=== PATIENT | male | born 1955 | race Caucasian/White ===

== ENCOUNTER 2018-03-04 05:09 | Inpatient (IN) ==
--- NOTE | 2018-02-27 17:40 | MH ---
cc: Jamie Farrell MD DATE OF ADMISSION: 03/04/2018 ADMITTING DIAGNOSIS: Osteoarthritis of the right knee. HISTORY OF PRESENT ILLNESS: The patient is a 62-year-old white male who has had a longstanding history of bilateral knee pain extending back for at least 6 years. The patient had noted the gradual onset of discomfort involving both knees unrelated to injury or unusual activity. He had completed previous orthopedic evaluation and within the past several years, had undergone arthroscopic surgery of both knees with limited improvement of his discomfort being noted. With the passage of time, he became progressively more symptomatic with pain that began to interfere with all weightbearing activities. 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 He was initially evaluated by the undersigned physician in May 2017 and at that time, his x-ray studies revealed obvious degenerative changes throughout the medial compartment, associated with a varus deformity of at least 10 degrees magnitude and secondary involvement of the patellofemoral articulation. Findings and treatment options were reviewed. The pros and cons of continuing with conservative management versus operative intervention that would involve total knee arthroplasty were outlined in detail. Emphasis was made regarding the fact that the decision to proceed with surgery would be left entirely to the patient's discretion. At that time, the patient elected to continue with conservative management. He was subsequently fitted with a medial offloading brace and prescribed diclofenac 75 mg to be taken twice daily. He was thereafter followed on an outpatient basis unfortunately his symptoms persisted in spite of ongoing treatment, which did include intraarticular steroid injection. He became progressively more symptomatic with pain and returned to the office in the more recent past expressing his desire to proceed with a more definitive course of treatment. The involvement of total knee arthroplasty was again outlined in detail and at that time, the patient felt that his symptoms and limitations had progressed to a point where he was ready to proceed accordingly. In compliance with his wishes, he was scheduled for admission at this time in order that the above be accomplished. PAST MEDICAL HISTORY, HOSPITALIZATIONS AND SURGERIES: In addition to the arthroscopic procedures as described included an arthroscopic rotator cuff repair of the right shoulder, tonsillectomy and colonoscopy. The patient denies active medical illnesses. MEDICATIONS: His prescribed medications have included diclofenac. ALLERGIES: HE DENIES ANY KNOWN DRUG ALLERGIES. REVIEW OF SYSTEMS: He wears glasses. Denies headache, seizure, or syncope. No sinus congestion or epistaxis. Auditory acuity intact. No tenderness. No bleeding gums or dysphagia. Denies cough, shortness of breath, upper respiratory infection, pneumonia, or tuberculosis. No angina or heart disease. His appetite is good. Bowel movements are regular. No hepatitis, gallbladder disease, ulcers or hemorrhoids. No urinary tract infection, no kidney stones, no prostate disease. No history of fractures. No psychiatric illness. His remaining review of systems is unremarkable and noncontributory. FAMILY HISTORY: The patient has been 17 years. This being a third marriage. His is 60 years of age and described as being in good health. He has 1 daughter who as indicated to be in good health. Family history is otherwise positive for hypertension, heart disease and cervical cancer. SOCIAL HISTORY: The patient completed a high school education. He is employed as a producer director at [employer]. He admits to a [id number] use of tobacco. Ethanol consumption in the form of 3-6 beers daily. PHYSICAL EXAMINATION: VITAL SIGNS: Height 5 feet 6 inches, weight 162 pounds. GENERAL: An alert, oriented, and responsive 62-year-old white male who sits quietly upon the examination table with no obvious distress. HEAD, EARS, EYES, NOSE AND THROAT: Pupils are equally round and reactive to light. Extraocular movements full. Sclerae are clear. External nares clear. External auditory canals clear. Edentulous in the maxillary distribution edentulous in the mandibular distribution. Mucous membranes pink and moist. Pharynx is clear. NECK: Supple. Active range of motion with no appreciable pain. Carotid pulse is palpable bilaterally. Trachea midline. Thyroid without thyroid enlargement. LUNGS: Clear to auscultation and percussion. No CVA tenderness. No discomfort throughout the dorsolumbar spine. HEART: Regular rate and rhythm. No murmur or gallop. ABDOMEN: Soft, nontender, bowel sounds present. RECTAL: Per primary care physician. EXTREMITIES: Right knee, no significant swelling or effusion. There is an obvious varus deformity with medial joint line tenderness. Apprehension and compression sign negative. Slight limitation of mobility at the extreme of flexion with pain associated. No significant crepitation or sensation of instability. Yani test and drawer sign negative. Pivot shift and Regan sign positive for medial compartment pain. Straight-leg raising unremarkable at 80 degrees. Satisfactory mobility of the right hip with no associated pain. Distal sensory grossly intact. Mild antalgic gait. NEUROLOGIC: Cranial nerves 2-12 grossly intact. IMPRESSION: Osteoarthritis of the right knee. PLAN: Right total knee arthroplasty: The nature of the planned surgical procedure, the potential complications and risks associated, the expectations of surgery and the consent form were thoroughly reviewed with the patient in the presence of his prior to admission to the hospital. Gianfranco has indicated his full understanding regarding all of the above and given consent to proceed with treatment as outlined. Medical evaluation and clearance for surgery completed by his primary care physician, Dr. Roberth Yoo. Jamie Farrell MD [facility]/ , 05:15 PM , 05:27 PM
[2018-03-04] MEDS ORDERED: Chlorhexidine Gluconate 2% 1 Pack (2 Cloths) TOPICAL ONE (05:37)
[2018-03-04] MEDS ORDERED: Metoprolol Tartrate 25 MG Tablet PO ONE (05:37)
[2018-03-04] MEDS ORDERED: Sodium Chlor 0.9% Inj 500 ML IV.SIG SCH (06:00)
[2018-03-04] MEDS ORDERED: ceFAZolin 2 GM Premix Inj 2 GM/50 ML PIGGYBACK IV.SIG SCH (06:00)
[2018-03-04] MEDS ORDERED: Bupivacaine Liposomal PF 1.3% Inj 20 ML Vial ONE (06:05)
[2018-03-04] MEDS ORDERED: Tranexamic Acid Inj 1,000 MG in Sodium Chlor 0.9% Inj 100 ML IV.SIG SCH ×2 (07:00→10:00)
[2018-03-04] MEDS ORDERED: Sodium Chlor 0.9% Inj 50 ML, Ropivacaine 0.5% PF Inj 24.63 ML, Ketorolac Inj 30 MG, EPI... P-ARTICULR SCH ×5 (07:00)
[2018-03-04] MEDS ORDERED: Lidocaine PF 1% Inj 5 ML Syringe INFILTRATN ONE (07:29)
[2018-03-04] MEDS ORDERED: Post-op Orders (for Pharmacy) OTHER STA (09:11)
[2018-03-04] MEDS ORDERED: fentaNYL Citrate Inj 100 MCG/2 ML Ampul ONE (09:28)
[2018-03-04] MEDS ORDERED: *morphine SULFATE 4 MG/ML PERIprocedure ONLY ONE (09:34)
[2018-03-04] MEDS ORDERED: Bisacodyl 10 MG Supp RECTAL PRN (09:39)
[2018-03-04] MEDS ORDERED: Aluminum/Magnesium/Simethacone Susp 30 ML UDC PO PRN (09:39)
[2018-03-04] MEDS ORDERED: Acetaminophen 325 MG Tablet PO PRN (09:39)
[2018-03-04] MEDS ORDERED: Tranexamic Acid Inj 1,000 MG in Sodium Chlor 0.9% Inj 100 ML IV.SIG ONE (09:39)
[2018-03-04] MEDS ORDERED: Zolpidem Tartrate 5 MG Tablet PO PRN (09:39)
[2018-03-04] MEDS ORDERED: Naloxone Inj 0.4 MG/ML Vial IV.PUSH PRN (09:39)
--- NOTE | 2018-03-04 09:54 | MP ---
cc: Jamie Farrell MD DATE OF OPERATION: 03/04/2018 PREOPERATIVE DIAGNOSIS: Osteoarthritis of the right knee. POSTOPERATIVE DIAGNOSIS: Osteoarthritis of the right knee. PROCEDURE PERFORMED: Right total knee arthroplasty. SURGEON: Jamie Farrell MD ANESTHESIA: General endotracheal. INDICATIONS: The patient is a 62-year-old white male with a longstanding history of bilateral knee pain dating back at least 6 years when the patient became symptomatic unrelated to injury or unusual activity. He has completed previous orthopedic evaluation, which had included arthroscopic surgery of both knees with limited improvement of his discomfort being noted. With the passage of time, he became progressively more symptomatic with pain. It began to interfere with all weightbearing activities. 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 He was initially evaluated by the undersigned physician in May of this past year and at that time, his x-ray studies revealed obvious degenerative changes throughout the medial compartment, associated with a varus deformity of at least 10 degrees magnitude and secondary involvement of the patellofemoral articulation. Findings and treatment options were reviewed at that time. The pros and cons of continuing with conservative management versus operative intervention that would involve total knee arthroplasty were outlined in detail. Emphasis was made regarding the fact that the decision to proceed with surgery will be left entirely to the patient's discretion. At that time, the patient elected to continue with conservative management. He was thereafter fitted with a medial offloading brace and prescribed diclofenac 75 mg twice daily. He was thereafter followed on an outpatient basis. Unfortunately his symptoms persisted in spite of ongoing treatment and subsequent intraarticular steroid injection. He became progressively more symptomatic with pain, returning to the office in the more recent past expressing his desire to proceed with a more definitive course of treatment. Once again, the involvement of total knee arthroplasty was outlined and at that time, the patient felt that he was ready to proceed accordingly and in compliance with his wishes, he was scheduled for admission at this time in order that the above be accomplished. FORMAT: Following the induction of satisfactory general anesthesia by endotracheal intubation as completed per the Department of Anesthesia, a tourniquet was established around the proximal portion of the right lower extremity. The extremity proper was isolated with a U-drape, thereafter being prepped with Betadine solution and draped into a sterile field in the routine manner. Prior to initiation of the actual procedure, the standard timeout protocol was completed. All parameters were appropriately addressed and confirmed by operating room personnel. The extremity was elevated for approximately 1 minute and the tourniquet, thus inflated to 250 mmHg pressure. A sharp skin incision was initiated midline over the anterior aspect of the knee and developed through underlying subcutaneous tissue with hemostasis maintained by electrocautery. By deepening dissection, the anterior capsule was exposed, a medial capsulotomy completed and the patella subluxed in a lateral orientation. Examination of the joint space, revealed severe degenerative changes throughout the medial compartment, extending into the patellofemoral articulation. There was complete erosion of articular cartilage and subchondral bone exposed. The articular surface of the patella was resected. The 3-hole guide was utilized for establishing post-holes. Medial and lateral meniscus structures were sharply excised as was the anterior cruciate ligament. A centering hole was placed in the distal aspect of the femur, allowing positioning of the intramedullary guides. The distal femoral cutting jig was attached and the distal femur resected. AP measurement noted 70 mm sizing to be appropriate. The matching cutting block was positioned; anterior, posterior and chamfer cuts were completed. The tibial plateau was thereafter subluxed in an anterior orientation allowing positioning of the extramedullary guide. The tibial plateau was resected and measured with 79 mm sizing determined to be appropriate. A trial reduction followed utilizing a 70 mm anatomic femoral component, a 79 mm tibial base with both 10 mm and 12 mm bearing inserts trialed. The 12 mm thickness was determined to be the more favorable fit. The knee was readily brought to full extension. There was no laxity to varus and valgus stress at both 0 and 90 degrees flexed posture. Orientation was confirmed as appropriate with measurement of the pelvic guide through the mechanical access of the knee. A trial reduction followed utilizing a 34 mm standard 3 post-patellar button. Again, good tracking noted with no tendency towards subluxation. All trial components were thereafter removed. The remaining portion of the proximal tibia was prepared for insertion of the permanent component. The joint space was thoroughly lavaged with pulsating antibiotic solution, hemostasis maintained by electrocautery. An autogenous bone plug was inserted into the distal femoral guide hole and thereafter a preparation of Biomet bone cement, was utilized in inserting knee components in a sequential fashion, which included a 79 mm fixed cruciate tibial plate to which a 12 mm Vanguard tibial bearing insert was secured with locking dawn. The 70 mm Vanguard femoral component was firmly seated onto the distal femur, excess cement being removed. The knee was brought to full extension and thereafter, the 34-mm standard 3 post-patellar button was attached and maintained in place with patellar clamp while cement hardening was completed. Final range of motion assessment noted good tracking and stability throughout the knee. Irrigation repeated with hemostasis maintained. Autovac drain tubes were inserted through superior stab wounds. The capsule was repaired with 0-Vicryl suture. Remaining portion of the wound was closed in layers in the routine manner, skin margins being reapproximated with a running subcuticular 3-0 Vicryl suture over which Steri-Strips were applied. Xeroform gauze and a bulky dry sterile dressing placed. Tourniquet deflated after 49 minutes of tourniquet time. The extremity being supported in a canvas knee splint. Anesthesia was discontinued. The patient was thus transferred to a hospital bed and returned to the recovery room in satisfactory condition, having tolerated his operative procedure well. Estimated blood loss was approximately 100 mL as determined per anesthesia. All implants of the [employer] mailing specialist. MD LORAINE Dutton/stephen , 09:26 AM , 09:38 AM
[2018-03-04] MEDS ORDERED: Morphine Inj 30 MG/30 ML PCA.VIAL PCA ONE (09:56)
[2018-03-04] MEDS: Morphine Inj 30 MG/30 ML PCA.VIAL PCA PRN (10:04)
--- NOTE | 2018-03-04 10:32 | XR ---
EXAM DATE: 03/04/2018 10:29 AM EDT AGE/SEX: 62 years / Male INDICATIONS: Post-op right total knee. CLINICAL DATA: This is the patient's initial encounter. Patient reports that signs and symptoms have been present for 1 day and indicates a pain score of Nonresponsive. MEDICAL/SURGICAL HISTORY: None. None. [place] [facility] [place] 4[place]13/2018. . FINDINGS: Total knee arthroplasty. Subcutaneous air, surgical drain identified. Tibial and femoral components a ppear well seated. CONCLUSION: Postop right total knee arthroplasty. Electronically signed by: Marquez Da Silva MD 03/04/2018 10:30 AM EDT
--- NOTE | 2018-03-04 14:55 | P.CON ---
History of Present Illness Service: medicine Consult date: 03/04/18 Requesting Physician: Jamie Farrell Reason for Consult: Postop medical management for total knee arthroplasty Primary Care Provider: Roberth Yoo DO Family Provider: Roberth Yoo DO Chief Complaint: none History of Present Illness: This is a 62-year-old male with osteoarthritis in multiple joints who presented with elective surgery with right total knee arthroplasty that was done today by Dr. Jamie Farrell. [facility] consulted for postop medical management. Patient seen postop in his room and he stated he has no complaints. Patient stated that he has no medical conditions. He does not take any medication but multivitamins. Patient also stated that he takes baby aspirin on his own for preventive measures. He stated that he stopped that almost a week ago due to the surgery. Patient has no complaints. Patient nurses at the bedside during the interview. Review of Systems Constitutional: Denies anorexia, Denies body ache(s), Denies chills, Denies daytime sleepiness, Denies excessive sweating, Denies fatigue, Denies fever(s), Denies headache(s), Denies increased appetite, Denies lack of energy, Denies malaise, Denies night sweats, Denies weakness, Denies weight gain, Denies weight loss, Denies other Eyes: Denies blind spots, Denies blurry vision, Denies bulging eyes, Denies change in vision, Denies double vision, Denies discharge, Denies dry eyes, Denies floaters, Denies irritation, Denies itchy eyes, Denies loss of vision, Denies pain, Denies requires corrective lenses, Denies sensitivity to light, Denies other Ears, Nose, Mouth, and Throat: Denies abnormal hearing, Denies bleeding gums, Denies bad breath, Denies change in voice, Denies dental pain, Denies difficulty swallowing, Denies dizziness, Denies dry mouth, Denies ear discharge , Denies ear pain, Denies facial pain, Denies headache(s), Denies hearing loss, Denies hoarseness, Denies lip swelling, Denies nosebleed, Denies mouth lesions, Denies mouth pain, Denies nasal congestion, Denies nasal discharge, Denies nasal obstruction, Denies nasal trauma, Denies neck lump, Denies neck pain, Denies nose pain, Denies pain with swallowing, Denies poor balance, Denies post nasal drip, Denies ringing in the ears, Denies sinus pain, Denies sinus pressure , Denies sore throat, Denies throat swelling, Denies tongue swelling, Denies other Cardiovascular: Denies chest pain, Denies chest pain at rest, Denies chest pain with activity, Denies excessive sweating, Denies fainting, Denies fast heart rate, Denies foot swelling, Denies generalized swelling, Denies irregular heart rhythm, Denies leg pain with activity, Denies leg sores, Denies leg swelling, Denies lightheadedness, Denies radiating jaw, neck or arm pain, Denies rapid, pounding, or irregular heartbeat, Denies shortness of breath, Denies shortness of breath with activity, Denies shortness of breath when lying down, Denies shortness of breath causing sudden awakening, Denies slow heart rate, Denies other Respiratory: Denies change in phlegm color, Denies chest congestion, Denies cough, Denies coughing up blood, Denies excessive phlegm production, Denies pain on inspiration, Denies pain with cough, Denies shortness of breath, Denies shortness of breath with activity, Denies snoring, Denies stridor, Denies wheezing, Denies other Gastrointestinal: Denies abdominal pain, Denies belching, Denies black, tarry stools, Denies bloating, Denies bright, red blood in stools, Denies change in bowel habits, Denies constant urge to pass stool, Denies change in stools, Denies coffee ground vomit, Denies constipation, Denies cramping, Denies difficulty swallowing, Denies excessive passing of gas, Denies feeling full early, Denies heartburn, Denies incontinent of stools, Denies loose stools, Denies nausea, Denies pain with swallowing, Denies vomiting, Denies vomiting blood, Denies other Genitourinary: Denies blood in semen, Denies blood in urine, Denies decreased urination, Denies difficulty urinating, Denies difficulty with ejaculations, Denies erectile dysfunction, Denies genital lesions, Denies genital pain, Denies painful urination, Denies side pain, Denies frequent nighttime urination , Denies painful ejaculations, Denies penile discharge, Denies scrotal swelling , Denies testicle lump, Denies testicle pain, Denies urinary frequency, Denies urinary hesitancy, Denies urinary incontinence, Denies urinary urgency, Denies other Musculoskeletal: Reports joint pain, Reports other (Right knee discomfort), Denies abnormal walking, Denies back pain, Denies body aches, Denies decreased muscle mass, Denies deformity, Denies joint swelling, Denies limited joint movement, Denies loss of height, Denies muscle cramps, Denies muscle weakness, Denies neck pain, Denies numbness, Denies radiating pain into limb, Denies stiffness, Denies tingling Skin/Breast: Denies acne, Denies bleeding lesions, Denies boil, Denies breast swelling, Denies breast skin changes, Denies breast pain, Denies breast lump, Denies change in breast shape, Denies change in hair, Denies change in skin color, Denies changing lesions, Denies dry skin, Denies excessive hair growth, Denies hair loss, Denies itching, Denies lesions, Denies nail changes, Denies new lesions, Denies nipple discharge, Denies non-healing lesions, Denies redness , Denies sensitivity to light, Denies rash, Denies skin pain, Denies skin ulcer , Denies sores, Denies stretch chambers, Denies unusual bruising, Denies wounds, Denies yellowing of the skin, Denies other Neurologic: Denies abnormal hearing, Denies abnormal movements, Denies abnormal speech, Denies abnormal walking, Denies behavioral changes, Denies burning sensations, Denies confusion, Denies dizziness, Denies fainting, Denies frequent falls, Denies headache(s), Denies lack of coordination, Denies localized weakness, Denies loss of vision, Denies memory loss, Denies numbness, Denies other visual disturbances, Denies radiating pain, Denies restless legs, Denies convulsions, Denies seizure-like activity, Denies sensory deficit, Denies tingling, Denies tingling/numbness/burning sensations, Denies tremor(s), Denies unsteadiness, Denies weakness, Denies other Psychiatric: Denies abnormal sleep pattern, Denies anxiety, Denies behavioral changes, Denies change in appetite, Denies change in sex drive, Denies confusion , Denies depression, Denies difficulty concentrating, Denies hearing things others do not hear, Denies hopelessness, Denies irritability, Denies lack of enjoyment, Denies memory loss, Denies mood swings, Denies panic attacks, Denies paranoia, Denies seeing things others do not see, Denies sensing things others do not sense, Denies tactile hallucinations, Denies thoughts of hurting/killing others, Denies thoughts of hurting/killing yourself, Denies other Endocrine: Denies cold intolerance, Denies excessive sweating, Denies flushing, Denies heat intolerance, Denies increased hunger, Denies increased thirst, Denies increased urination, Denies rapid, pounding, or irregular heartbeat, Denies other Hematologic/Lymphatic: Denies easy bleeding, Denies easy bruising, Denies enlarged lymph nodes, Denies other Allergic/Immunologic: Denies GI upset with certain foods, Denies hives, Denies itchy eyes, Denies lip swelling, Denies seasonal runny nose, Denies throat swelling, Denies tongue swelling, Denies wheezing, Denies other PMFSH - History History Provided By: Patient - Medical History Medical History: Medical History (Last Reviewed 03/04/18 @ 08:16 by Janes Pete) Arthritis Wears dentures - Surgical History Surgical History: Surgical History (Last Reviewed 03/04/18 @ 08:16 by Janes Pete) Hx of arthroscopic knee surgery Hx of rotator cuff surgery - Family History Family History: Family History (Last Updated 03/04/18 @ 15:00 by Zenia Ohara MD) Other Family history reviewed with no changes - Tobacco History Second Hand Smoke Exposure: Yes Tobacco Use In Past 30 Days: Yes Smoking Status: Current every day smoker Tobacco Type: Cigarettes - Alcohol History How Often Do You Have a Drink Containing Alcohol: 4 or more times a week - Substance Use History Substance History: No History of Abuse Medications and Allergies Active Medications: Active Medications Acetaminophen (Tylenol) 650 mg PO Q6H PRN PRN Reason: FEVER > 102 F Hydrocodone Bitart/Acetaminophen (Sen[place] 5/325) 1 tab PO Q4H PRN PRN Reason: PAIN LESS THAN 5 ON SCALE Hydrocodone Bitart/Acetaminophen ([place] 5/325) 2 tab PO Q6H PRN PRN Reason: PAIN SCALE 5 TO 10 Al Hydrox/Mg Hydrox/Simethicone (Mag-Al Plus Susp Liq) 30 ml PO Q6H PRN PRN Reason: INDIGESTION Al Hydroxide/Mg Hydroxide (Milk Of Magnesia Liq) 30 ml PO BID PRN PRN Reason: Mild Constipation Aspirin (Aspirin) 325 mg PO BID [facility] Bisacodyl (Dulcolax Supp) 10 mg RECTAL DAILY PRN PRN Reason: SEVERE CONSITIPATION Cefazolin Sodium/Dextrose (Ancef 2 Gm Premix Inj) 2 gm in 50 mls @ 100 mls/hr IV.SIG [employer]IPMENT TENDER [facility] Stop: 03/08/18 05:59 Cefazolin Sodium 1,000 mg/ (Sodium Chloride) 100 mls @ 200 mls/hr IV.SIG Q6H [facility] Stop: 03/05/18 01:29 Lactated Ringer's (Lr 1000 Ml Inj) 1,000 mls @ 80 mls/hr IV.CONT .[id number] [facility] Last Infusion: 03/04/18 10:30 Dose: 80 mls/hr Morphine Sulfate (Morphine Inj) 30 mg in 30 mls @ 0 mls/hr INSIDE CHANNEL ACCOUNT MANAGER UNSCH PRN PRN Reason: per INSIDE CHANNEL ACCOUNT MANAGER parameters Stop: 03/05/18 09:38 Last Admin: 03/04/18 10:04 Dose: 0 mls/hr Lactulose (Lactulose Liq) 30 ml PO DAILY PRN PRN Reason: SEVERE CONSITIPATION Miscellaneous Information (Misc Nursing Information) 0 each OTHER UNSCH PRN PRN Reason: SEE DOSE INSTRUCTIONS Miscellaneous Information (Mis Nursing Information) 0 each OTHER UNSCH PRN PRN Reason: SEE LABEL COMMENTS Stop: 03/05/18 09:24 Naloxone HCl (Narcan Inj) 0.4 mg IV.PUSH UNSCH PRN PRN Reason: Resp rate < 10 Nicotine (Habitrol 14 Mg Patch.24 Hr) 1 patch T-DERMAL DAILY [facility] Ondansetron HCl (Zofran Inj) 4 mg IV.PUSH Q6H PRN PRN Reason: NAUSEA OR VOMITING Patch Removal (Remove Old Patch) 1 each T-DERMAL DAILY [facility] Povidone Iodine (Betadine 7.5% Scrub) 1 applicatio TOPICAL ONCE [facility] Stop: 03/08/18 05:59 Last Admin: 03/04/18 05:30 Dose: 1 applicatio Senna/Docusate Sodium (Maru-Colace) 1 tab PO BID [facility] Sennosides (Senokot) 17.2 mg PO BID PRN PRN Reason: Moderate Constipation Sodium Chloride (Ns Flush) 2 ml IV.FLUSH BID [facility] Sodium Chloride (Ns Flush) 2 ml IV.FLUSH UNSCH PRN PRN Reason: FLUSH AFTER USING IV ACCESS Zolpidem Tartrate (Ambien) 5 mg PO HS PRN PRN Reason: INSOMNIA Allergies Allergy/AdvReac Type Severity Reaction Status Date / Time No Known Allergies Allergy Verified 03/04/18 06:26 Home Medications Medication Instructions Recorded Confirmed Type ibuprofen 800 mg PO TID 02/19/18 03/04/18 History diclofenac sodium mg PO BID 03/04/18 History Physical Exam Vital signs: Vital Signs 03/04/18 05:53 03/04/18 05:57 03/04/18 06:35 Temperature 98.6 F Pulse Rate 71 74 Respiratory Rate 20 Blood Pressure 153/89 H Pulse Oximetry 96 03/04/18 09:23 03/04/18 09:30 03/04/18 09:45 Temperature 98.1 F Pulse Rate 76 70 66 Respiratory Rate 16 16 14 Blood Pressure 129/75 129/69 116/68 Pulse Oximetry 97 95 94 L 03/04/18 10:00 03/04/18 10:15 03/04/18 10:30 Temperature 98.1 F Pulse Rate 63 61 61 Respiratory Rate 12 12 12 Blood Pressure 114/68 112/65 127/70 Pulse Oximetry 96 97 97 Intake & Output 03/03/18 03/04/18 03/04/18 18:59 06:59 18:59 Intake Total 1220 / 1220 Output Total 140 / 140 Balance 1080 / 1080 Weight 73.2 kg 73.2 kg Intake: IV 1220 / 1220 LR 1000 mL Inj 1,000 ML @ 80 10 / 10 mls/hr IV.CONT .[id number] [facility] Rx# :[id number] LR 1000 mL Inj 1,000 ML @ 30 1000 / 1000 mls/hr IV.SIG .Q24H [facility] Rx#: [id number] Cyklokapron Inj 1,000 MG In NS 210 / 210 Inj 100 ML @ 200 mls/hr IV.SIG ONCE [facility] Rx#:[id number] Oral 0 / 0 Output: Urine 0 / 0 Estimated Blood Loss 100 / 100 Wound Drainage 40 / 40 Right Proximal Knee 40 / 40 Other: Weight On Admission 73.2 kg - Constitutional no acute distress - Routine HEENT Exam Head: Present: normocephalic, atraumatic Eye: Present: EOMI, PERRL ENT: Present: mucous membranes moist - Routine Neck Exam Present: supple, full ROM - Routine Respiratory Exam Present: CTA bilaterally - Routine Cardiovascular Exam Present: RRR, S1, S2 Comments: No rubs murmurs or gallops - Routine Abdominal Exam Present: soft, normoactive bowel sounds Comments: No tenderness to palpation abdomen - Routine Extremities Exam Comments: Negative for any edema. Right foot is in bandages with wound VAC in place. - Routine Neurological Exam Present: alert, oriented X3 - Routine Psychiatric Exam Present: normal affect, normal thought process Assessment and Plan - Plan This is a 60-year-old male with past mental history of osteoarthritis who presented today for elective surgery with right total knee arthroplasty by Dr. Jamie Farrell severe right OA -failed medical management -elective surgery with right total knee arthroplasty by Dr. Jamie Farrell today on 03/04/2018. -Management per orthopedic surgeon. Most likely patient will go home with home health. Primary prevention for cardiovascular disease -Patient started baby aspirin on his own due to his father having a history of [place]. -Patient educated on the risks and benefits of baby aspirin for primary prevention for cardiovascular disease. I told patient to speak to his primary care provider in regards to this. I also stated to patient that if he wants to continue this medication to ask his orthopedic surgeon when he can restart aspirin. DVT prophylaxis -Per primary team. Patient medically clear for discharge.
[2018-03-04] MEDS: Aspirin 325 MG Tablet PO SCH (22:17)
[2018-03-04] MEDS: Senna/Docusate Sodium 8.6/50 MG Tablet PO SCH (22:18)
[2018-03-05] MEDS: Morphine Inj 30 MG/30 ML PCA.VIAL PCA PRN (03:46)
[2018-03-05 05:22] LABS: Hematocrit 30.6 % (39.0-51.0); Hemoglobin 10.7 gm/dL (13.0-17.0)
--- NOTE | 2018-03-05 06:28 | P.DCO ---
- Physical Therapy Physical Therapy: Gait training Knee: Protocol: Right, Full weight bearing Right Lower Extremity Weight Bearing: Weight bearing as tolerated - Nursing Nursing: Dressing changes Dressing changes: Daily dressing change - Certification Need for Home Health services: I have seen patient Gianfranco De Jesus on 03/05/18. My clinical findings support the need for the requested home health care services because: Need for Home Health Services: Limited ability to care for self, High risk of falls Homebound Certification: I certify that my clinical findings support that this patient is homebound because: Homebound Certification: Post-op weakness, Unsafe to leave home unassisted
--- NOTE | 2018-03-05 07:35 | MD ---
cc: Jamie Farrell MD, John R DO DATE OF DISCHARGE: 03/05/2018 ADMITTING DIAGNOSIS: Osteoarthritis of the right knee. DISCHARGE DIAGNOSIS: Osteoarthritis of the right knee. HISTORY OF PRESENT ILLNESS: A 62-year-old white male with a 6-year history of bilateral knee pain as related to osteoarthritis. He had conformed to conservative management in the past, but previous treatment had included arthroscopic surgery bilaterally with limited improvement being noted. With the passage of time, he became progressively more symptomatic with pain that began to limit all weightbearing activities in spite of ongoing conservative modalities. His current x-ray studies revealed obvious degenerative changes with [id number] apposition about the medial compartment, associated with a varus deformity of at least 10 degrees magnitude. Findings and treatment options were reviewed with the patient at that time. The pros and cons of continuing with conservative management versus operative intervention that would involve total knee arthroplasty were outlined in detail. Emphasis was made regarding the fact that the decision to proceed with surgery would be left entirely to the patient's discretion. The patient readily admitted that his symptoms had progressed to a point in time where he was ready to proceed accordingly; and in compliance with his wishes, he was scheduled for admission at this time in order that the above be accomplished. For further details with regard to pertinent findings regarding his history, interested parties would be directed to his admitting documentation including history and physical examination. PHYSICAL EXAMINATION: His physical examination at the time of admission did reveal no significant swelling or effusion about the right knee. There was an obvious varus deformity with medial joint line tenderness. Apprehension and compression sign were negative. There was limited mobility at the extreme of flexion with pain associated. No appreciable crepitation or sensation of instability. Yani test and drawer sign negative. Pivot shift and Regan sign positive for medial compartment pain. Straight leg raising unremarkable at 80 degrees. Satisfactory mobility of the right hip with no associated pain. Distal sensory grossly intact. Mild antalgic gait. HOSPITAL COURSE: Prior to admission to the hospital, the patient had undergone medical evaluation and clearance for surgery as completed by his primary care physician, Dr. Roberth Yoo. He was taken to the operating room on 03/04/2018; and on that date, underwent a right total knee arthroplasty completed in an uncomplicated manner. The patient was noted to have tolerated his operative procedure well. His postoperative course stable thereafter. Hemoglobin and hematocrit assessment postoperatively was 10.7 and 30.6 respectively. The patient was progressively mobilized under the guidance of physical therapy, being permitted weightbearing to tolerance about the right lower extremity. Followup examination of his surgical wound noted to be intact, healing favorably, no evidence of infection. Medical followup per the hospitalist service. DVT prophylaxis initiated. Fitness Coordinator consulted to assist with discharge planning. The patient had indicated his desire to be discharged home and continue his rehabilitation on an outpatient basis. Plans were finalized in this regard and he was subsequently cleared for discharge pending medical clearance on the first postoperative day, at which time he was making favorable progress with regard to his initial rehabilitation program. He was scheduled to be seen in office followup in approximately 4 weeks. CONDITION AT THE TIME OF DISCHARGE: Stable and prognosis favorable. DISCHARGE MEDICATIONS: Include hydrocodone 5/325, #30; aspirin 325 mg 1 tab twice daily for 3 weeks. MD LORAINE Dutton/devendra , 06:36 AM , 06:43 AM
[2018-03-05] MEDS: Aspirin 325 MG Tablet PO SCH ×2 (09:16→21:00)
[2018-03-05] MEDS: Senna/Docusate Sodium 8.6/50 MG Tablet PO SCH ×2 (09:19→21:01)
--- NOTE | 2018-03-05 09:36 | P.PN ---
Subjective Interval history: Follow-up on patient status post right elective total knee replacement. Patient seen and examined. Patient states he feels well except for some burning pain in the right knee. He denies any fever or chills. He denies any cough, chest pain or shortness of breath. Denies any nausea, vomiting or abdominal pain. Physical Exam Vital signs: Vital Signs 03/04/18 09:30 03/04/18 09:45 03/04/18 10:00 Temperature Pulse Rate 70 66 63 Respiratory Rate 16 14 12 Blood Pressure 129/69 116/68 114/68 Pulse Oximetry 95 94 L 96 03/04/18 10:15 03/04/18 10:30 03/04/18 12:00 Temperature 98.1 F 97.8 F Pulse Rate 61 61 60 Respiratory Rate 12 12 18 Blood Pressure 112/65 127/70 113/65 Pulse Oximetry 97 97 98 03/04/18 16:00 03/04/18 20:00 03/05/18 00:00 Temperature 97.8 F 97.9 F 98.2 F Pulse Rate 53 L 58 L 59 L Respiratory Rate 16 18 17 Blood Pressure 97/62 L 110/65 103/56 L Pulse Oximetry 99 98 03/05/18 04:00 03/05/18 04:05 Temperature 98.6 F Pulse Rate 64 Respiratory Rate 17 18 Blood Pressure 121/56 L Pulse Oximetry 96 Intake & Output 03/04/18 03/05/18 03/05/18 18:59 06:59 18:59 Intake Total 1320 / 1320 1090 / 1090 Output Total 940 / 940 1000 / 1000 Balance 380 / 380 90 / 90 Weight 73.2 kg Intake: IV 1320 / 1320 1090 / 1090 LR 1000 mL Inj 1,000 ML @ 80 10 / 10 990 / 990 mls/hr IV.CONT .[id number] [facility] Rx# :[id number] LR 1000 mL Inj 1,000 ML @ 30 1000 / 1000 mls/hr IV.SIG .Q24H [facility] Rx#: [id number] Cyklokapron Inj 1,000 MG In NS 210 / 210 Inj 100 ML @ 200 mls/hr IV.SIG ONCE [facility] Rx#:[id number] Ancef Inj 1,000 MG In NS Inj 100 / 100 100 / 100 100 ML @ 200 mls/hr IV.SIG Q6H [facility] Rx#:[id number] Oral 0 / 0 Output: Urine 400 / 400 650 / 650 Estimated Blood Loss 100 / 100 Wound Drainage 440 / 440 350 / 350 Right Knee Hemovac 200 / 200 350 / 350 Right Proximal Knee 240 / 240 Other: # Voids 1 Date of Last Bowel Movement 03/04/18 03/04/18 Narrative: GENERAL: WDWN male patient, INAD. Awake and alert. Sitting up in bed eating breakfast. SKIN: Warm and dry. HEAD: Atraumatic. Normocephalic. EYES: Pupils equal and round. No scleral icterus. No injection or drainage. ENT: No nasal bleeding or discharge. Mucous membranes pink and moist. NECK: Trachea midline. CARDIOVASCULAR: Regular rate and rhythm. RESPIRATORY: No accessory muscle use. Clear to auscultation. Breath sounds equal bilaterally. GASTROINTESTINAL: Abdomen soft, non-tender, nondistended. +BS. MUSCULOSKELETAL: Extremities without clubbing, cyanosis, or edema. s/p right TKR , knee in postop dressing. RLE in CPM. NV intact distally. NEUROLOGICAL: Awake and alert. No obvious cranial nerve deficits. Motor grossly within normal limits. Nonfocal. Normal speech. PSYCHIATRIC: Appropriate mood and affect; insight and judgment normal. Results - Labs CBC & Chem 7: 03/05/18 03:39 Laboratory Results - last 24 hr 03/05/18 03:39 Hgb 10.7 L Hct 30.6 L - Imaging Impressions Knee X-Ray 03/04/18 09:33 CONCLUSION: Postop right total knee arthroplasty. Assessment and Plan - Plan 60-year-old male with past mental history of osteoarthritis who presented today for elective surgery with right total knee arthroplasty by Dr. Jamie Farrell severe right knee osteoarthritis s/p right TKA 03/04/18 -failed conservative management -Management per orthopedic surgeon. Primary prevention for cardiovascular disease -Patient started baby aspirin on his own due to his father having a history of [place]. -Patient educated on the risks and benefits of baby aspirin for primary prevention for cardiovascular disease. I told patient to speak to his primary care provider in regards to this. I also stated to patient that if he wants to continue this medication to ask his orthopedic surgeon when he can restart aspirin. Ongoing tobaccoism -Patient counseled on the importance of smoking cessation for overall health but most specifically postoperatively to ensure adequate healing and decrease risk of infection and possible need for further surgical intervention. Patient stated understanding. DVT prophylaxis -Per primary team, ASA 325mg po BID, Pepcid 20mg BID added Discussed Condition With: patient, Dr. Antonio, nursing staff
[2018-03-05] MEDS: Famotidine 20 MG Tablet PO SCH ×2 (11:37→21:00)
[2018-03-06 01:57] VITALS: O2SAT 95
[2018-03-06] MEDS: Famotidine 20 MG Tablet PO SCH (08:40)
[2018-03-06] MEDS: Senna/Docusate Sodium 8.6/50 MG Tablet PO SCH (08:40)
[2018-03-06] MEDS: Aspirin 325 MG Tablet PO SCH (08:40)
[2018-03-06 08:53] VITALS: BP 165/81; PULSE 79; RESP 18; TEMP 98.3
--- NOTE | 2018-03-06 09:35 | P.PN ---
Subjective Interval history: Follow-up on patient status post right elective total knee replacement. Patient seen and examined. Patient's discharge from yesterday was postponed secondary to postoperative pain. Patient's pain is now much more controlled. He denies any complaints overnight. Denies any fever or chills. Denies any chest pain or shortness of breath. Physical Exam Vital signs: Vital Signs 03/05/18 11:49 03/05/18 12:00 03/05/18 16:00 Temperature 98.3 F 98.4 F Pulse Rate 68 72 Respiratory Rate 23 23 Blood Pressure 124/71 135/74 Pulse Oximetry 98 95 90 L 03/05/18 20:00 03/06/18 00:00 03/06/18 04:00 Temperature 98.4 F 98.2 F 98 F Pulse Rate 78 74 73 Respiratory Rate 18 18 18 Blood Pressure 138/76 148/73 H 133/82 Pulse Oximetry 93 L 95 95 03/06/18 05:13 03/06/18 08:00 Temperature 98.3 F Pulse Rate 79 Respiratory Rate 14 18 Blood Pressure 165/81 H Pulse Oximetry 95 Intake & Output 03/05/18 03/06/18 03/06/18 18:59 06:59 18:59 Intake Total 1080 / 1080 960 / 960 Output Total 1000 / 1000 Balance 80 / 80 960 / 960 Weight 74.9 kg Intake: Oral 1080 / 1080 960 / 960 Output: Urine 1000 / 1000 Other: # Voids 675 Date of Last Bowel Movement 03/04/18 03/04/18 # Bowel Movements 0 Narrative: GENERAL: WDWN male patient, INAD. Awake and alert. Sitting up in bed. Appears comfortable. SKIN: Warm and dry. No rash. HEAD: Atraumatic. Normocephalic. EYES: Pupils equal and round. No scleral icterus. No injection or drainage. ENT: No nasal bleeding or discharge. Mucous membranes pink and moist. NECK: Trachea midline. CARDIOVASCULAR: Regular rate and rhythm. RESPIRATORY: No accessory muscle use. Clear to auscultation. Breath sounds equal bilaterally. GASTROINTESTINAL: Abdomen soft, non-tender, nondistended. +BS. MUSCULOSKELETAL: Extremities without clubbing, cyanosis, or edema. s/p right TKR , knee in postop dressing. NV intact distally. NEUROLOGICAL: Awake and alert. No obvious cranial nerve deficits. Motor grossly within normal limits. Nonfocal. Normal speech. PSYCHIATRIC: Appropriate mood and affect; insight and judgment normal. Results - Labs CBC & Chem 7: 03/05/18 03:39 Assessment and Plan - Plan 60-year-old male with past mental history of osteoarthritis who presented today for elective surgery with right total knee arthroplasty by Dr. Jamie Farrell severe right knee osteoarthritis s/p right TKA 03/04/18 -failed conservative management -Management per orthopedic surgeon. -Patient discharged yesterday but held secondary to poorly controlled postop pain. Now much improved. Plan for discharge today. Primary prevention for cardiovascular disease -Patient started baby aspirin on his own due to his father having a history of MS. -Patient educated on the risks and benefits of baby aspirin for primary prevention for cardiovascular disease. I told patient to speak to his primary care provider in regards to this. Ongoing tobaccoism -Patient counseled on the importance of smoking cessation for overall health but most specifically postoperatively to ensure adequate healing and decrease risk of infection and possible need for further surgical intervention. Patient stated understanding. DVT prophylaxis -Per primary team, ASA 325mg po BID, Pepcid 20mg BID added Discussed Condition With: patient, nursing staff, Dr. Cummings
== END 2018-03-06 10:21 | disposition home health service (06) ==
LOC: HSDC 05:09 → EDSTATUS 07:00 → N06 09:33
PROVIDERS: ADMIT Orthopaedic Surgery; ATTEND Orthopaedic Surgery